=== PATIENT | female | born 1950 | race Caucasian/White ===

== ENCOUNTER 2017-08-01 18:47 | Inpatient (IN) | payer BC, OTHER ==
[~2017-08-01] VITALS: Ht 170.2 cm; Wt 43.5 kg
[~2017-08-01 18:47] MED LIST: ALEN70TA45 PO; NAPR-1192 PO; PHEN-704 PO; SULF1TAB48 PO
--- NOTE | 2017-08-01 19:00 | NUR ---
BIB DAUGHTER FOR PSYCH EVAL --- PER DAUGHTER PATIENT IS DELUSIONAL, RECEIVED PATIENT AWAKE AND ALERT, APPEARS IN NO DISTRESS. RESPIRATION EVEN AND UNLABORED. PATIENT DENIES HI NOR SI. AFEBRILE. VSS.
[2017-08-01 19:08] LABS: BASOPHILS # (AUTO) 0.1 /CMM (0.0-0.2); EOSINOPHILS % (AUTO) 0.7 % (0.0-6.0); HEMATOCRIT 46 % (33-45); HEMOGLOBIN 15.7 g/dL (11.5-14.8); LYMPHOCYTES # (AUTO) 1.5 /CMM (0.8-4.8); LYMPHOCYTES % (AUTO) 18.8 % (20.0-44.0); MEAN CORPUSCULAR HGB CONC 34 g/dl (31.0-36.0); MEAN CORPUSCULAR VOLUME 89 fL (82-100); MONOCYTES # (AUTO) 0.5 /CMM (0.1-1.30); MONOCYTES % (AUTO) 5.8 % (2.0-12.0); NEUTROPHILS # (AUTO) 5.6 /CMM (1.8-8.9); NEUTROPHILS % (AUTO) 73.7 % (43.0-81.0); PLATELET COUNT (AUTO) 220 /CMM (150-450); RDW COEFFICIENT OF VARIATION 13.6 (11.5-15.0); RED BLOOD CELL COUNT(AUTO) 5.19 MIL/uL (4.0-5.2); WHITE BLOOD COUNT (AUTO) 7.8 K/uL (4.3-11.0)
[2017-08-01 19:09] LABS: APPEARANCE,URINE Clear (CLEAR); BILIRUBIN,URINE Negative (NEGATIVE); BLOOD, URINE Negative Ery/uL (NEGATIVE); COLOR,URINE Yellow (YELLOW); KETONES,URINE 15 (NEGATIVE); LEUKOCYTE ESTERASE ,URINE Small (NEGATIVE); NITRITE, URINE Positive (NEGATIVE); PROTEIN,URINE Negative (NEGATIVE); UGLUCOSE Negative (NEGATIVE); UROBILINOGEN,URINE 0.2 EU/dL (0.2)
--- NOTE | 2017-08-01 19:14 | NUR ---
URINE SAMPLE COLLECTED AND SENT TO LAB
[2017-08-01 19:15] LABS: CALCIUM, SERUM 9.7 mg/dL (8.5-10.1); CARBON DIOXIDE 31 mmol/L (21-32); CHLORIDE 104 mmol/L (98-107); CREATININE 0.8 mg/dL (0.6-1.3); GLUCOSE 123 mg/dL (74-106); POTASSIUM 3.3 mmol/L (3.5-5.1); SODIUM SERUM 142 mmol/L (136-145); UREA NITROGEN, BLOOD 17 mg/dL (7-18)
[2017-08-01 19:20] LABS: BACTERIA,URINE 3+ /HPF (None Seen); RBC,URINE NONE SEEN /HPF (0-2); SQUAMOUS EPITHELIAL CELL,UR Few /HPF (None Seen)
[2017-08-01 19:29] LABS: ALANINE AMINOTRANSFERASE 19 U/L (12-78); ALBUMIN 4.3 g/dL (3.4-5.0); ALKALINE PHOSPHATASE 57 U/L (46-116); ASPARTATE AMINOTRANSFERASE 15 U/L (15-37); BILIRUBIN,DIRECT 0.2 mg/dL (0.0-0.2); BILIRUBIN,TOTAL 1.1 mg/dL (0.2-1.0); TOTAL PROTEIN, SERUM 7.8 g/dL (6.4-8.2)
[2017-08-01 19:30] LABS: ACETAMINOPHEN < 10 ug/ml (10-30); ALCOHOL, BLOOD < 3 mg/dL (0-0); SALICYLATE 0.7 mg/dL (2.8-20.0)
--- NOTE | 2017-08-01 19:41 | NUR ---
CALLED [facility], FOR PSYCH EVAL, ETA WITHIN THE HOUR.
[2017-08-01] MEDS ORDERED: CIPROFLOXACIN HCL 500 MG TABLET PO ONE (20:00)
[2017-08-01] MEDS ORDERED: CIPROFLOXACIN HCL 500 MG TABLET ONE (20:03)
[2017-08-01] MEDS ORDERED: CLONIDINE HCL 0.1 MG TABLET PO PRN (21:00)
--- NOTE | 2017-08-01 21:00 | NUR ---
PATIENT STATED "IM SUICIDAL WITH PLAN TO SHOOT MYSELF". DENIES HAVING GUN.
--- NOTE | 2017-08-01 22:39 | NUR ---
PATIENT TRANSPORTED TO GPS. VSS
--- NOTE | 2017-08-01 22:40 | NUR ---
ADMITTED A 67 Y/O FEMALE FROM HOME, ON [address] HOLD GD, PER HOLD, PATIENT IS UNABLE TO CARE FOR HERSELF, NOT EATING, DEPRESSED, ADMITTED BEING SUICIDAL WITH A PLAN TO SHOOT HERSELF IN THE HEAD WITH GUN. PATIENT ADMITTING DIAGNOSIS IS PSYCHOSIS, DEPRESSION AND MEDICAL DX. OF HYPERTENSION, OSTEOPOROSIS, OSTEOARTHRITIS. UPON FACE TO FACE EVALUATION, PATIENT APPEARED ALERT AND ORIENTED X 3, DISORGANIZED, GUARDED, PARANOID AND REDIRECTABLE. PATIENT SIGN PAPER WORKS, PATIENT HAS NO SOB, NO ACUTE DISTRESS, BREATHING EVEN AND UNLABORED, NO S/S OF PAIN AND DISCOMFORT, PATIENT ADMITTED HAVING SUICIDAL IDEATION WITH NO PLAN AT THIS TIME PER REPORT, PATIENT IS AMBULATORY AND CONTINENT. HEAD TO TOE ASSESSMENT DONE, SKIN IS INTACT, BELONGINGS INSPECTED FOR CONTRABAND CHECKING AND PLACED TO LOCKED CABINET. DAUGHTER AT BEDSIDE. PATIENT IS UNDER THE CARE OF DR. PIPER AND DR. BLAIR. NOTIFIED MD OF THE ADMISSION. KEPT CLEAN, DRY AND COMFORTABLE, WILL CONTINUE TO MONITOR [id number] FOR SAFETY.
[2017-08-01] MEDS ORDERED: ACETAMINOPHEN 325 MG TABLET PO PRN (23:00)
[2017-08-01] MEDS ORDERED: MAG HYDROX/AL HYDROX/SIMETH 30 ML UDC PO PRN (23:00)
[2017-08-01] MEDS ORDERED: LORAZEPAM 0.5 MG TABLET PO PRN (23:00)
[2017-08-01] MEDS: NAPROXEN 375 MG TABLET PO SCH (23:00)
[2017-08-01] MEDS ORDERED: MAGNESIUM HYDROXIDE 30 ML UDC PO PRN (23:00)
[2017-08-01 23:44] VITALS: BP 145/82
[2017-08-02] MEDS: NAPROXEN 375 MG TABLET PO SCH ×3 (06:52→21:26)
[2017-08-02 07:11] LABS: BASOPHILS % (AUTO) 0.6 % (0.0-2.0); EOSINOPHILS % (AUTO) 0.8 % (0.0-6.0); HEMATOCRIT 45 % (33-45); LYMPHOCYTES # (AUTO) 1.4 /CMM (0.8-4.8); LYMPHOCYTES % (AUTO) 22.6 % (20.0-44.0); MEAN CORPUSCULAR HGB CONC 34 g/dl (31.0-36.0); MEAN CORPUSCULAR VOLUME 90 fL (82-100); MONOCYTES # (AUTO) 0.4 /CMM (0.1-1.30); MONOCYTES % (AUTO) 6.6 % (2.0-12.0); NEUTROPHILS # (AUTO) 4.4 /CMM (1.8-8.9); NEUTROPHILS % (AUTO) 69.4 % (43.0-81.0); PLATELET COUNT (AUTO) 203 /CMM (150-450); RDW COEFFICIENT OF VARIATION 14.1 (11.5-15.0); RED BLOOD CELL COUNT(AUTO) 4.98 MIL/uL (4.0-5.2); WHITE BLOOD COUNT (AUTO) 6.4 K/uL (4.3-11.0)
[2017-08-02 07:31] LABS: CHOLESTEROL 166 mg/dL (<200); HDL CHOLESTEROL 81 mg/dL (40-60); LDL 76 mg/dL (0-99); TRIGLYCERIDES 62 mg/dL (30-150)
[2017-08-02 07:34] LABS: BILIRUBIN,TOTAL 1.1 mg/dL (0.2-1.0); CALCIUM, SERUM 9.8 mg/dL (8.5-10.1); CREATININE 0.7 mg/dL (0.6-1.3); POTASSIUM 3.2 mmol/L (3.5-5.1); TOTAL PROTEIN, SERUM 7.1 g/dL (6.4-8.2)
[2017-08-02 08:00] VITALS: BP 146/89
[2017-08-02] MEDS: SULFAMETH/TRIMETH 800/160 MG 1 UDTAB TABLET PO SCH ×2 (08:34→16:43)
[2017-08-02] MEDS: POTASSIUM CHLORIDE 20 MEQ TAB.PRT.SR PO SCH ×2 (09:48→10:35)
--- NOTE | 2017-08-02 12:01 | NUR ---
GPS RN NOTE: DR TAVAREZ [facility] NOTIFIED PT K 3.[address] GIVE ANOTHER KDUR 40 MEQ ONCE , ORDER PLACED AND CARED OUT .
[2017-08-02] MEDS ORDERED: POTASSIUM CHLORIDE 20 MEQ TAB.PRT.SR PO ONE (12:30)
[2017-08-02 16:00] VITALS: BP 148/89
[2017-08-02 21:56] VITALS: BP 131/72
[2017-08-02] MEDS ORDERED: QUETIAPINE FUMARATE 25 MG TABLET PO SCH (22:00)
[2017-08-03] MEDS: NAPROXEN 375 MG TABLET PO SCH ×4 (05:22→21:49)
[2017-08-03 08:30] VITALS: BP 134/81
[2017-08-03] MEDS: DULOXETINE HCL 30 MG CAPSULE.DR PO SCH (08:43)
[2017-08-03] MEDS: SULFAMETH/TRIMETH 800/160 MG 1 UDTAB TABLET PO SCH ×2 (08:43→16:10)
--- NOTE | 2017-08-03 09:44 | NUR ---
GPS RN NOTE: PT IN THE ROOM RESTING IN BED ISOLATIVE, DEPRESSED PT DENIES SI/HI AT THIS TIME , DENIES PAIN OR DISCOMFORT COMPLIANT WITH MEDICATIONS WILL CONTINUE MONITORING FOR SAFETY AND BEHAVIOR Q 15 MIN
[2017-08-03 16:00] VITALS: BP 148/89
[2017-08-03 20:15] VITALS: BP 144/80
[2017-08-03] MEDS: TEMAZEPAM 7.5 MG CAPSULE PO PRN (20:25)
[2017-08-03] MEDS: risperiDONE 0.25 MG TABLET PO SCH (20:25)
[2017-08-04] MEDS: NAPROXEN 375 MG TABLET PO SCH ×3 (05:00→21:16)
[2017-08-04 08:00] VITALS: BP 132/83
[2017-08-04] MEDS: risperiDONE 0.25 MG TABLET PO SCH ×2 (08:18→21:16)
[2017-08-04] MEDS: DULOXETINE HCL 30 MG CAPSULE.DR PO SCH (08:18)
[2017-08-04] MEDS: SULFAMETH/TRIMETH 800/160 MG 1 UDTAB TABLET PO SCH ×2 (08:18→17:10)
--- NOTE | 2017-08-04 12:57 | NUR ---
Initial Discharge Plan: Pt resides at home [[address], [place] [address]; ] by herself. Per pt, she would like to return home but she is gravely disabled and her daughter, Renetta Noe ([phone]), would like her to be transferred to a SNF or have home health as an option. SW will speak to the pt, family and the MD regarding appropriate discharge plans. SW will form a safe and proper discharge plan.
--- NOTE | 2017-08-04 12:58 | NUR ---
SW contacted pt's care provider at [facility] to conduct a review but left a message because there was no answer.
--- NOTE | 2017-08-04 15:01 | NUR ---
SW called pt's [facility] neonatal critical care nurse, Diana Forbes [ ext. [phone]] at [phone] and left a message detailing the content of the review which included the pt's identifying information, medical consultation report, history and physical report, medications and lastly a progress note.
[2017-08-04 16:00] VITALS: BP 136/97
[2017-08-04 20:02] VITALS: BP 126/78
[2017-08-04 23:00] VITALS: BP 128/82
[2017-08-05] MEDS: NAPROXEN 375 MG TABLET PO SCH ×3 (05:46→21:13)
[2017-08-05] MEDS: DULOXETINE HCL 30 MG CAPSULE.DR PO SCH (09:00)
[2017-08-05] MEDS: risperiDONE 0.25 MG TABLET PO SCH ×2 (09:00→21:13)
[2017-08-05] MEDS: SULFAMETH/TRIMETH 800/160 MG 1 UDTAB TABLET PO SCH ×2 (09:00→17:38)
--- NOTE | 2017-08-05 10:11 | NUR ---
GPS/RN-NOTES PATIENT STRONGLY REFUSED ALL 0900AM MEDICATIONS DESPITE EXPLANATIONS RISK AND BENEFITS. PATIENT STATED" NO NO NO ". OFFERED X3 BUT PATIENT GETS ANGRY WITH THE OPERATING TABLE ASSEMBLER.
--- NOTE | 2017-08-05 13:15 | NUR ---
GPS/RN-NOTES PATIENT STILL STRONGLY [id number] MEDICATION DESPITE EXPLANATIONS RISK AND BENEFITS. PATIENT STATED ONLY " NO NO NO ". OFFERED X3 .ALSO PATIENT REFUSED TO EAT .
--- NOTE | 2017-08-05 13:54 | NUR ---
SW spoke to the pt's health care facilities inspector, Diana Forbes [ ext. [phone]], and a list of potential residentials were emailed to the SW to follow up on for the pt's discharge.
[2017-08-05 16:00] VITALS: BP 138/79
--- NOTE | 2017-08-05 17:38 | NUR ---
GPS/RN-NOTES NOTED PATIENT DISROBING AND WALKING IN THE HALLWAY NAKED. REDIRECTED PATIENT AND TWO CONTINUOUS WAVE OPERATOR STAFF GAVE HER A SHOWER. ATIVAN 0.5MG P.O GIVEN PRN ORDER. DR. PIPER IN THE UNIT AT THIS TIME. WILL CONT. MONITORING FOR SAFETY AND BEHAVIOR.
[2017-08-05 20:21] VITALS: BP 152/90
[2017-08-06] MEDS: NAPROXEN 375 MG TABLET PO SCH ×3 (05:23→21:00)
[2017-08-06 08:00] VITALS: BP 124/78
[2017-08-06] MEDS: SULFAMETH/TRIMETH 800/160 MG 1 UDTAB TABLET PO SCH (09:00)
[2017-08-06] MEDS: risperiDONE 0.25 MG TABLET PO SCH ×2 (09:00→21:00)
[2017-08-06] MEDS: DULOXETINE HCL 30 MG CAPSULE.DR PO SCH (09:00)
--- NOTE | 2017-08-06 12:29 | NUR ---
SW called the pt's child care giver, Diana Forbes [ ext. [phone]] and left a review that was due today over her confidential voicemail at 1230pm.
--- NOTE | 2017-08-06 14:09 | NUR ---
RN-CO: Paged Dr Moreau 2x to
--- NOTE | 2017-08-06 14:10 | NUR ---
RN-CO: DR PIPER NOTIFIED REGARDING HIS RIESE HEARING.
--- NOTE | 2017-08-06 14:31 | NUR ---
SW spoke to Lindsay from [facility] [phone] about placing the patient at their location once the insurance is authorized.
[2017-08-06 16:28] VITALS: BP 122/78
[2017-08-06 20:00] VITALS: BP 118/61
--- NOTE | 2017-08-06 21:50 | NUR ---
GPS/RN-NOTES PATIENT REFUSED SCHEDULED MEDICATIONS. OFFERED 3X. EXPLANATIONS RISK AND BENEFITS. PT STILL REFUSED. WILL ENDORSE TO NEXT SHIFT NURSE FOR [facility].
[2017-08-07] MEDS: NAPROXEN 375 MG TABLET PO SCH ×3 (05:00→22:19)
[2017-08-07 08:00] VITALS: BP 116/57
[2017-08-07] MEDS: DULOXETINE HCL 30 MG CAPSULE.DR PO SCH (08:08)
[2017-08-07] MEDS: risperiDONE 0.25 MG TABLET PO SCH (08:08)
[2017-08-07] MEDS ORDERED: HALOPERIDOL LACTATE INJ 5 MG/ML VIAL IM PRN (14:30)
[2017-08-07 16:29] VITALS: BP 122/77
[2017-08-07] MEDS: BENZTROPINE MESYLATE (1 MG) 1 MG TABLET PO SCH (16:44)
[2017-08-07] MEDS: HALOPERIDOL 5 MG TABLET PO SCH (16:44)
[2017-08-07 20:31] VITALS: BP 141/76
[2017-08-07] MEDS: TEMAZEPAM 7.5 MG CAPSULE PO PRN (22:19)
[2017-08-08] MEDS: NAPROXEN 375 MG TABLET PO SCH ×3 (05:00→21:43)
[2017-08-08 07:15] LABS: BASOPHILS % (AUTO) 0.6 % (0.0-2.0); EOSINOPHILS % (AUTO) 4.8 % (0.0-6.0); HEMATOCRIT 41 % (33-45); HEMOGLOBIN 13.6 g/dL (11.5-14.8); LYMPHOCYTES # (AUTO) 1.7 /CMM (0.8-4.8); LYMPHOCYTES % (AUTO) 27.9 % (20.0-44.0); MEAN CORPUSCULAR HGB CONC 34 g/dl (31.0-36.0); MEAN CORPUSCULAR VOLUME 92 fL (82-100); MONOCYTES # (AUTO) 0.4 /CMM (0.1-1.30); MONOCYTES % (AUTO) 6.8 % (2.0-12.0); NEUTROPHILS # (AUTO) 3.6 /CMM (1.8-8.9); NEUTROPHILS % (AUTO) 59.9 % (43.0-81.0); PLATELET COUNT (AUTO) 177 /CMM (150-450); RDW COEFFICIENT OF VARIATION 14.3 (11.5-15.0); RED BLOOD CELL COUNT(AUTO) 4.43 MIL/uL (4.0-5.2)
[2017-08-08 07:25] LABS: CALCIUM, SERUM 9.6 mg/dL (8.5-10.1); CREATININE 0.7 mg/dL (0.6-1.3); MAGNESIUM 2.1 mg/dL (1.8-2.4); PHOSPHORUS 3.5 mg/dL (2.5-4.9); POTASSIUM 3.9 mmol/L (3.5-5.1)
[2017-08-08 08:00] VITALS: BP 108/73
[2017-08-08] MEDS: BENZTROPINE MESYLATE (1 MG) 1 MG TABLET PO SCH ×2 (08:17→16:53)
[2017-08-08] MEDS: HALOPERIDOL 5 MG TABLET PO SCH ×2 (08:17→16:53)
[2017-08-08] MEDS: DULOXETINE HCL 30 MG CAPSULE.DR PO SCH (08:17)
[2017-08-08 16:00] VITALS: BP 140/89
[2017-08-08 21:28] VITALS: BP 116/69
[2017-08-08] MEDS: TEMAZEPAM 7.5 MG CAPSULE PO PRN (21:43)
[2017-08-09] MEDS: NAPROXEN 375 MG TABLET PO SCH ×3 (05:00→20:53)
[2017-08-09 08:11] VITALS: BP 107/66
[2017-08-09] MEDS: BENZTROPINE MESYLATE (1 MG) 1 MG TABLET PO SCH ×2 (08:35→16:26)
[2017-08-09] MEDS: HALOPERIDOL 5 MG TABLET PO SCH ×2 (08:35→16:27)
[2017-08-09] MEDS: DULOXETINE HCL 30 MG CAPSULE.DR PO SCH (08:48)
[2017-08-09 15:58] VITALS: BP 119/67
[2017-08-09 20:07] VITALS: BP 124/64
[2017-08-09] MEDS: TEMAZEPAM 7.5 MG CAPSULE PO PRN (20:54)
--- NOTE | 2017-08-09 20:54 | NUR ---
temazepam 7.5 mg cap 1 po given for insomnia.
[2017-08-10] MEDS: NAPROXEN 375 MG TABLET PO SCH ×3 (05:47→21:47)
[2017-08-10 08:03] VITALS: BP 100/57
[2017-08-10] MEDS: HALOPERIDOL 5 MG TABLET PO SCH ×2 (09:04→16:02)
[2017-08-10] MEDS: BENZTROPINE MESYLATE (1 MG) 1 MG TABLET PO SCH ×2 (09:04→16:02)
[2017-08-10] MEDS: DULOXETINE HCL 30 MG CAPSULE.DR PO SCH (09:04)
--- NOTE | 2017-08-10 13:47 | NUR ---
SW was informed by Ad that the pt did not get authorized for [facility].
--- NOTE | 2017-08-10 13:48 | NUR ---
BARBARA spoke to the pt's daughter, Renetta Noe about the pt's discharge plan. BARBARA informed the daughter that the pt's insurance does not authorize any of the facilities and that assisted living is the MD's recommendation even though the money would have to come out of pocket. The daughter stated that she wants her mother to go home after discharge.
[2017-08-10 16:02] VITALS: BP 110/69
--- NOTE | 2017-08-10 19:30 | NUR ---
GPS RN NOTE, RECEIVED PATIENT AWAKE AND IN BED, NO S/S OR COMPLAINTS OF PAIN AT THIS TIME. PATIENT DISPLAYING NO S/S OF APPARENT DISTRESS AT THIS TIME. PATIENT BREATHING IS UNLABORED WITH EQUAL RISE AND FALL OF THE CHEST. PATIENT ALERT AND ORIENTED X 3 WITH A SPO2 95%. PATIENT IS MED COMPLIANT, DISORGANIZED, ISOLATIVE, COOPERATIVE, GUARDED, PARANOID, NEEDS REORIENTATION. PATIENT DENIES SUICIDE IDEATIONS AND HOMICIDAL IDEATIONS AT THIS TIME. PATIENT ASSISTED WITH TURNING AND REPOSITIONING Q2HR AND PRN FOR COMFORT AND CIRCULATION. PATIENT HAS NO NEEDS AT THIS TIME. PATIENT EDUCATED ON THE USE OF THE CALL JEREZ. PATIENT BED SIDE RAILS UP X2 FOR SAFETY, BED IS LOCKED AND LOW WILL CONTINUE TO MONITOR AND MAINTAIN AND MAINTAIN SAFETY.
[2017-08-10 19:59] VITALS: BP 105/58
[2017-08-11] MEDS: NAPROXEN 375 MG TABLET PO SCH ×3 (05:46→21:17)
[2017-08-11 08:00] VITALS: BP_SYST 100; BP_SYST 113; BP_DIAS 56; BP_DIAS 71
[2017-08-11] MEDS: HALOPERIDOL 5 MG TABLET PO SCH ×2 (08:28→16:13)
[2017-08-11] MEDS: DULOXETINE HCL 30 MG CAPSULE.DR PO SCH (08:28)
[2017-08-11] MEDS: BENZTROPINE MESYLATE (1 MG) 1 MG TABLET PO SCH ×2 (08:28→16:13)
[2017-08-11 16:00] VITALS: BP 109/53
--- NOTE | 2017-08-11 16:28 | NUR ---
SW called pt's [facility] customer care consultant, Diana Forbes [ ext. [phone]] and left a current review on her voicemail.
[2017-08-11 20:27] VITALS: BP 98/53
[2017-08-11 23:00] VITALS: BP 115/67
[2017-08-12] MEDS: NAPROXEN 375 MG TABLET PO SCH ×3 (05:16→20:20)
[2017-08-12 08:00] VITALS: BP 120/58
[2017-08-12] MEDS: BENZTROPINE MESYLATE (1 MG) 1 MG TABLET PO SCH ×2 (08:18→16:03)
[2017-08-12] MEDS: HALOPERIDOL 5 MG TABLET PO SCH ×2 (08:18→16:03)
[2017-08-12] MEDS: DULOXETINE HCL 30 MG CAPSULE.DR PO SCH (08:20)
--- NOTE | 2017-08-12 15:30 | NUR ---
BARBARA spoke to the pt's daughter, Renetta Noe and informed her that the pt will be discharged tomorrow and that she would have to come pick her up.
[2017-08-12 16:00] VITALS: BP 105/53
--- NOTE | 2017-08-12 17:25 | NUR ---
GPS/RN-NOTES PATIENT LAYING IN HER BED AWAKE,ALERT NO ACUTE DISTRESS NOTED. ENDORSED TO CHARGE NURSE FOR CONTINUITY OF CARE.
--- NOTE | 2017-08-12 19:45 | NUR ---
RN NOTES GPS RN NOTE: RECEIVED PATIENT AWAKE LYING IN BED IN PATIENT ROOM . COMPLAINTS OF GENERALIZED PAIN AT THIS TIME 10/10 PER PATIENT AND IS REQUESTING FOR NAPROXEN. PATIENT DISPLAYING NO S/S OF APPARENT DISTRESS AT THIS TIME. PATIENT IS ALERT AND ORIENTED X 3. PATIENT DENIES SUICIDE IDEATIONS AND HOMICIDAL IDEATIONS AT THIS TIME. ENCOURAGED TO VENT FEELINGS AND ASK FOR HELP IF NEEDED. WILL CONTINUE TO MONITOR AND MAINTAIN AND MAINTAIN SAFETY.
[2017-08-12 20:32] VITALS: BP 143/63
[2017-08-13] MEDS: NAPROXEN 375 MG TABLET PO SCH ×3 (05:49→20:29)
[2017-08-13] MEDS: BENZTROPINE MESYLATE (1 MG) 1 MG TABLET PO SCH ×2 (08:23→17:51)
[2017-08-13] MEDS: DULOXETINE HCL 30 MG CAPSULE.DR PO SCH (08:23)
[2017-08-13] MEDS: HALOPERIDOL 5 MG TABLET PO SCH ×2 (08:24→17:51)
[2017-08-13 08:37] VITALS: BP 99/59
--- NOTE | 2017-08-13 12:02 | NUR ---
BARBARA spoke to the pt's daughter, Renetta Noe , and determined that she will come supervisor opening and picking the patient around 6:30-7pm today. The daughter also requested that the social insurance analyst look for adult day care centers that her mother would be able to go to.
--- NOTE | 2017-08-13 15:04 | NUR ---
Per Dr. Mena who is covering for Dr. Moreau, pt will not be discharging today due to suicidal ideations that are present.
--- NOTE | 2017-08-13 15:06 | NUR ---
BARBARA spoke to the pt's daughter, Renetta Noe , and informed her that her mother will not be discharged today.
--- NOTE | 2017-08-13 15:34 | NUR ---
GPS/RN-NOTES DR. ROUSSEAU COVERING FOR DR. PIPER TODAY MADE AWARE OF PATIENT STATEMENT EARLIER DURING THE RISK ASSESSMENT THAT SHE WILL CUT HER SELF WITH THE KNIFE UPON GOING HOME. DR. ROUSSEAU VERBALLY ORDERED NOT TO DISCHARGE PATIENT TODAY. CHARGE NURSE AND SW MADE AWARE OF THE ORDER. WILL CONT. MONITORING Q15 MINS. FOR SAFETY AND BEHAVIOR.
[2017-08-13 16:00] VITALS: BP 108/62
--- NOTE | 2017-08-13 17:57 | NUR ---
GPS/RN-NOTES DR. PIPER MADE AWARE OF PATIENT DISCHARGE CANCELLATION DUE TO PATIENT SUICIDAL IDEATIONS. ALSO PATIENT DAUGHTER LISA AGUILA ([phone]) AWARE OF THE DISCHARGE CANCELLATION AND THAT SHE WILL COME TONIGHT TO SEE HER MOTHER.
--- NOTE | 2017-08-13 18:42 | NUR ---
GPS/RN-NOTES DAUGHTER MINGO WITH THE PATIENT AT THIS TIME.
--- NOTE | 2017-08-13 20:00 | NUR ---
GPS RN NOTE: PATIENT SPENT TIME IN HER BED AWAKE ALERT VISITING WITH DAUGHTER THEN WAS ABLE TO SHOWER AND SPEND MIMINAL TIME IN DAY ROOM WITH ENCOURAGEMENT. NO ACUTE DISTRESS NOTED. DID C/O VOICES WITH SUICIDAL IDEATION BUT NO COMMAND AND NO PLAN. NO HI AT THIS TIME, NO COMPLAIN OF PAIN/DISCOMFORT AT THIS TIME,WILL CONTINUE MONITORING FOR SAFETY AND BEHAVIOR Q15 MINS.
[2017-08-13 20:38] VITALS: BP 109/73
[2017-08-14] MEDS: NAPROXEN 375 MG TABLET PO SCH ×2 (05:19→12:49)
[2017-08-14 08:00] VITALS: BP 106/63
[2017-08-14] MEDS: BENZTROPINE MESYLATE (1 MG) 1 MG TABLET PO SCH ×2 (08:52→16:47)
[2017-08-14] MEDS: DULOXETINE HCL 30 MG CAPSULE.DR PO SCH (08:52)
[2017-08-14] MEDS: HALOPERIDOL 5 MG TABLET PO SCH ×2 (08:52→16:47)
--- NOTE | 2017-08-14 09:42 | NUR ---
SW [facility] technical counselor, Diana Forbes [ ext. [phone]] and left a current review on her voicemail.
--- NOTE | 2017-08-14 10:14 | NUR ---
SW spoke to the pt's [facility] critical care nurse practitioner, Diana Forbes [ ext. [phone]] and was informed that her case is now being sent for a peer review to authorize more days here at the hospital.
--- NOTE | 2017-08-14 10:41 | NUR ---
SW spoke to Blanca ([phone] ext [phone]), blood bank order control clerk of [facility], who stated that there will be a peer review today between psychiatrists, Dr. Mcgee and Dr. Moreau, at 3pm. The results of this peer review will determine whether or not the pt will be authorized for more days.
--- NOTE | 2017-08-14 11:09 | NUR ---
SW received from Dr. Moreau to discharge the pt today at 11:05am.
--- NOTE | 2017-08-14 13:09 | NUR ---
BARBARA spoke to the pt's daughter, Renetta Noe , and confirmed that she will be able to pick the pt up around 6:30pm today.
--- NOTE | 2017-08-14 14:50 | NUR ---
BARBARA called pt's [facility] managed care specialist, Diana Forbes [ ext. [phone]] and informed her that the pt will be discharging today and will no longer need a peer to peer review or additional days authorized.
--- NOTE | 2017-08-14 15:48 | NUR ---
Discharge Note: Pt discharged and went back home with her daughter, Renetta Noe ([phone]), to [address] [place] [address] ([phone]). Pt denied suicidal/homicidal ideations and denied visual/auditory hallucinations. Pts mood and affect was calm and cooperative at discharge. She was agreeable to this placement and pts daughter also agreed to this discharge plan. Pt was given psychiatric referrals such as the [facility] ( ), [facility] ( and ) and the [facility], [facility]. ([phone]). Pt was also referred to [facility] [[address] [place] [address]; ] for a psychiatrist and to [facility]. ([address], [facility], [place], [address]) for her medical doctor.
[2017-08-14 15:59] VITALS: BP 101/59
--- NOTE | 2017-08-14 19:45 | NUR ---
GPS RN Note: 67 yo female discharged to home in stable condition. Compliant with medications, cooperative with treatment plans. Patient denies SI/HI and instructed to go to the closest ER if developing SI/HI. Behavior improved, psychiatric tx plans met, medical tx. plans deferred for continual monitoring. Educated pt about after care plan (exit-care) and copy provided. Returned personal belongings to patient. Medications reconciled with Dr. Moreau and Dr. Duval. Pt signed discharge paperwork. Skin clear. Pt left the unit at [address] wheelchair with daughter and COLLECTOR OF INTERNAL REVENUE.
== END 2017-08-14 19:40 | disposition home or self-care (01) | DRG 885 ==
LOC: ER 18:49 → GPS 22:03
PROVIDERS: ADMIT Psychiatry & Neurology Psychiatry; ATTEND Internal Medicine
DX: F33.3 Major depressive disorder, recurrent, severe with psychotic symptoms (principal); F23 Brief psychotic disorder; E44.0 Moderate protein-calorie malnutrition; Z68.1 Body mass index [BMI] 19.9 or less, adult; F41.9 Anxiety disorder, unspecified; I10 Essential (primary) hypertension; M81.0 Age-related osteoporosis without current pathological fracture; M19.90 Unspecified osteoarthritis, unspecified site; Z88.0 Allergy status to penicillin; Z73.6 Limitation of activities due to disability
CPT/HCPCS: 36415; 80048-TC; 80053-TC; 80061-TC; 80076-TC; 80305; 81000-TC; 83735-TC; 84100-TC; 85025-TC; 87081-TC; 87086-TC; G0480

== ENCOUNTER 2019-02-21 09:08 | Emergency (ER) | payer OTHER ==
[~2019-02-21] VITALS: Ht 165.1 cm; Wt 61.2 kg
[~2019-02-21 09:08] MED LIST changes: -ALEN70TA45 PO; +ALEN70TA6 PO
--- NOTE | 2019-02-21 09:10 | NUR ---
PT [address] C/O HEADACHE FOR 10 DAYS, PT IS AAOX3, NOT IN RESPIRATORY DISTRESS, HOOKED TO UNIT MANAGER CONVENIENCE STORES, KEPT RESTED AND COMFORTABLE, WILL CONTINUE TO MONITOR.
--- NOTE | 2019-02-21 09:20 | NUR ---
AT BEDSIDE FOR EVAL.
[2019-02-21] MEDS ORDERED: IV NS 0.9% 1,000 ML BAG IV ONE ×2 (09:30→10:30)
--- NOTE | 2019-02-21 09:30 | NUR ---
IV LINE ESTABLISHED BLOOD DRAWN AND SENT TO LAB.
[2019-02-21 09:38] LABS: BASOPHILS # (AUTO) 0.1 /CMM (0.0-0.2); BASOPHILS % (AUTO) 0.7 % (0.0-2.0); EOSINOPHILS % (AUTO) 2.9 % (0.0-6.0); HEMATOCRIT 53 % (33-45); HEMOGLOBIN 17.7 g/dL (11.5-14.8); LYMPHOCYTES # (AUTO) 1.7 /CMM (0.8-4.8); LYMPHOCYTES % (AUTO) 20.4 % (20.0-44.0); MEAN CORPUSCULAR HGB CONC 33 g/dl (31.0-36.0); MEAN CORPUSCULAR VOLUME 89 fL (82-100); MONOCYTES # (AUTO) 0.5 /CMM (0.1-1.30); MONOCYTES % (AUTO) 5.4 % (2.0-12.0); NEUTROPHILS % (AUTO) 70.6 % (43.0-81.0); PLATELET COUNT (AUTO) 272 /CMM (150-450); RED BLOOD CELL COUNT(AUTO) 5.96 MIL/uL (4.0-5.2); WHITE BLOOD COUNT (AUTO) 8.5 K/uL (4.3-11.0)
--- NOTE | 2019-02-21 09:45 | NUR ---
BLIND TEACHER AT BEDSIDE FOR XRAY.
[2019-02-21 09:47] LABS: CALCIUM, SERUM 10.8 mg/dL (8.5-10.1); CARBON DIOXIDE 29 mmol/L (21-32); CHLORIDE 98 mmol/L (98-107); CREATININE 1.3 mg/dL (0.6-1.3); GLUCOSE 201 mg/dL (74-106); POTASSIUM 4.2 mmol/L (3.5-5.1); SODIUM SERUM 142 mmol/L (136-145); UREA NITROGEN, BLOOD 18 mg/dL (7-18)
--- NOTE | 2019-02-21 09:48 | NUR ---
PT IS WHEELED TO CT SCAN VIA [facility].
[2019-02-21 10:01] LABS: ALANINE AMINOTRANSFERASE 30 U/L (12-78); ALBUMIN 3.8 g/dL (3.4-5.0); ALKALINE PHOSPHATASE 57 U/L (46-116); ASPARTATE AMINOTRANSFERASE 32 U/L (15-37); BILIRUBIN,DIRECT 0.3 mg/dL (0.0-0.2); BILIRUBIN,TOTAL 1.4 mg/dL (0.2-1.0); TOTAL PROTEIN, SERUM 7.1 g/dL (6.4-8.2)
[2019-02-21] MEDS ORDERED: UNK BP MEDICATION PO (10:05)
[2019-02-21] MEDS ORDERED: LEVOFLOXACIN 750 MG /D5W 150ML PIGGYBACK IV ONE (10:30)
[2019-02-21] MEDS ORDERED: VANCOMYCIN 1 GM in IV D5W 250 ML IV ONE (10:30)
--- NOTE | 2019-02-21 10:30 | NUR ---
CALLED [facility] [phone] JOSIE. REYNOSO WILL CALL DR. ARANDA.
--- NOTE | 2019-02-21 10:41 | NUR ---
URINE SPECIMEN COLLECTED AND SENT TO LAB.
[2019-02-21 10:46] LABS: APPEARANCE,URINE Clear (CLEAR); BILIRUBIN,URINE SMALL (NEGATIVE); BLOOD, URINE Negative Ery/uL (NEGATIVE); COLOR,URINE Yellow (YELLOW); KETONES,URINE 40 (NEGATIVE); LEUKOCYTE ESTERASE ,URINE Negative (NEGATIVE); NITRITE, URINE Negative (NEGATIVE); PROTEIN,URINE Negative (NEGATIVE); UGLUCOSE Negative (NEGATIVE); UROBILINOGEN,URINE 0.2 EU/dL (0.2)
[2019-02-21] MEDS ORDERED: LEVOFLOXACIN 750 MG /D5W 150ML 150 ML IV ONE (10:46)
[2019-02-21 11:09] LABS: ALCOHOL, BLOOD < 3 mg/dL (0-0)
[2019-02-21 11:10] LABS: SALICYLATE 1.6 mg/dL (2.8-20.0)
--- NOTE | 2019-02-21 11:22 | NUR ---
ER PHLEB AT BEDSIDE FOR REPEAT BLOOD DRAW.
--- NOTE | 2019-02-21 12:28 | NUR ---
PATIENT ACCEPTED BY DR. KNAPP FROM [facility].
--- NOTE | 2019-02-21 12:31 | NUR ---
PT IS AWAKE ON BED, AAOX3, NOT IN RESPIRATORY DISTRESS, V/S STABLE, KEPT RESTED AND COMFORTABLE, AWAITING TRANSFER INFO FROM [place] FOR PT TRANSFER.
--- NOTE | 2019-02-21 13:07 | NUR ---
TRANSFER INFO PT GOING TO [facility] NUMBER FOR REPORT: [phone] ACCEPTED BY
--- NOTE | 2019-02-21 13:07 | NUR ---
TRANASFER INFO: PT WILL GO TO [facility], ACCEPTED DR CHILD, RN FOR REPORT [phone], [facility] ETA [id number]
--- NOTE | 2019-02-21 13:09 | NUR ---
AMBULANCE ETA 1345 FOR ALS TRANSFER
--- NOTE | 2019-02-21 13:15 | NUR ---
REPORT GIVEN TO THEA [facility] OF [facility] FOR [facility].
[2019-02-21 13:36] VITALS: BP 128/76
--- NOTE | 2019-02-21 13:36 | NUR ---
REPORT GIVEN TO EMT FOR PT TRANSFER TO [facility].
== END 2019-02-21 13:38 | disposition short-term general hospital (02) ==
LOC: ER 09:13
DX: S00.83XA Contusion of other part of head, initial encounter (principal); G93.40 Encephalopathy, unspecified; R51 Headache; I10 Essential (primary) hypertension; R00.0 Tachycardia, unspecified; Z88.0 Allergy status to penicillin; Z88.1 Allergy status to other antibiotic agents; Z88.6 Allergy status to analgesic agent; Z88.8 Allergy status to other drugs, medicaments and biological substances; Z60.2 Problems related to living alone; Z79.899 Other long term (current) drug therapy; X58.XXXA Exposure to other specified factors, initial encounter; Y93.89 Activity, other specified; Y92.89 Other specified places as the place of occurrence of the external cause; Y99.8 Other external cause status
CPT/HCPCS: 36415; 70450; 71045; 80048; 80076; 80305; 80307; 80329; 81001; 82140; 83605 ×2; 84145; 84484; 85025; 85730; 87040 ×2; 87086; 93005; 96365; 96366; 96368; 99291; G0480; J1956; J3370; J7030 ×3; J7060; 81000-TC